=== PATIENT | female | born 1935 | race Caucasian/White ===

== ENCOUNTER 2020-10-25 15:42 | Emergency (ER) | payer MEDICARE ==
[~2020-10-25] VITALS: Ht 152.4 cm; Wt 47.6 kg
[2020-10-25 16:14] LABS: BASOPHILS ABSOLUTE AUTO 0.01 K/mm3 (0.00-0.23); BASOPHILS PERCENT AUTO 0 % (0-2); EOSINOPHILS ABSOLUTE AUTO 0.02 K/mm3 (0.00-0.68); EOSINOPHILS PERCENT AUTO 0 % (0-6); Hematocrit 40.2 % (33.0-51.0); Hemoglobin 13.1 g/dL (11.5-16.0); IMMATURE GRAN ABSOLUTE AUTO 0.03 K/mm3 (0.00-0.10); IMMATURE GRAN PERCENT AUTO 0 % (0-1); LYMPHOCYTES ABSOLUTE AUTO 0.36 K/mm3 (0.84-5.20); LYMPHOCYTES PERCENT AUTO 4 % (21-46); MONOCYTES ABSOLUTE AUTO 0.27 K/mm3 (0.16-1.47); MONOCYTES PERCENT AUTO 3 % (4-13); Mean Corpuscular HGB 28.9 pg (26.0-34.0); Mean Corpuscular HGB Conc 32.6 g/dL (31.5-36.5); Mean Corpuscular Volume 89 fL (80-100); Mean Platelet Volume 11.3 fL (9.1-12.4); NEUTROPHILS ABSOLUTE AUTO 8.53 K/mm3 (1.96-9.15); NEUTROPHILS PERCENT AUTO 93 % (41-73); Platelet Count 246 K/mm3 (150-400); RDW Coefficient Variation 15.2 % (11.7-14.2); RDW Standard Deviation 49.3 fL (35.1-46.3); Red Blood Cell Count 4.53 M/mm3 (3.80-5.20); White Blood Cell Count 9.22 K/mm3 (4.00-11.30)
[2020-10-25 16:33] LABS: Albumin, Blood 3.3 g/dL (3.4-5.0); Albumin/Globulin Ratio 0.7 (0.8-1.8); Bilirubin, Total 0.7 mg/dL (0.1-1.0); Bun/Creatinine Ratio 25.2 (12.0-20.0); Calcium, Blood 9.5 mg/dL (8.5-10.1); Creatinine, Blood 1.23 mg/dL (0.40-1.00); Globulin, Blood 4.7 g/dL (2.2-4.0); Potassium, Blood 4.3 mmol/L (3.5-5.5)
[2020-10-25] MEDS ORDERED: LOVASTATIN40 MG PO (18:15)
[2020-10-25] MEDS ORDERED: METOPROLOL TART25 MG PO (18:15)
[2020-10-25] MEDS ORDERED: LISINOPRIL-HCT1 EACH PO (18:16)
[2020-10-25 18:31] LABS: Source, Urine Voided
[2020-10-25 18:39] LABS: Bilirubin, Urine Neg (Neg); Blood, Urine 2+ (Neg); Glucose Qualitative, Urine Neg (Neg); Ketones, Urine 1+ (Neg); Leukocyte Esterase, Urine Neg (Neg); Nitrite, Urine Neg (Neg); Protein, Urine 4+ (Neg); Urobilinogen, Urine NORM (Normal)
[2020-10-25 18:49] LABS: Appearance, Urine Clear (Clear); Color, Urine Yellow (P-Yellow)
[2020-10-25 18:50] LABS: Bacteria Mod /hpf; Mucus Light (0-Heavy); Squamous Epithelial Cells Few /hpf (Few)
[2020-10-25] MEDS ORDERED: ONDA4ODT MM (20:21)
== END 2020-10-25 20:28 | disposition home or self-care (01) ==
LOC: ER 15:42
PROVIDERS: Physician Assistant
DX: R11.2 Nausea with vomiting, unspecified (principal); R19.7 Diarrhea, unspecified; Z79.899 Other long term (current) drug therapy
CPT/HCPCS: 36415; 71046; 80053; 81001; 83690; 85025; 96374; 99283-25; J2405; J7030

== ENCOUNTER 2020-10-28 09:14 | Inpatient (IN) | payer MEDICARE ==
[~2020-10-28] VITALS: Ht 152.4 cm; Wt 47.9 kg
[~2020-10-28 09:14] MED LIST: LISINOPRIL-HCT1 EACH PO; LOVASTATIN40 MG PO; METOPROLOL TART25 MG PO; ONDA4ODT MM
[2020-10-28 10:30] LABS: BASOPHILS ABSOLUTE AUTO 0.02 K/mm3 (0.00-0.23); BASOPHILS PERCENT AUTO 0 % (0-2); EOSINOPHILS ABSOLUTE AUTO 0.04 K/mm3 (0.00-0.68); EOSINOPHILS PERCENT AUTO 0 % (0-6); Hematocrit 33.7 % (33.0-51.0); Hemoglobin 11.1 g/dL (11.5-16.0); IMMATURE GRAN ABSOLUTE AUTO 0.06 K/mm3 (0.00-0.10); IMMATURE GRAN PERCENT AUTO 1 % (0-1); LYMPHOCYTES PERCENT AUTO 7 % (21-46); MONOCYTES ABSOLUTE AUTO 0.93 K/mm3 (0.16-1.47); MONOCYTES PERCENT AUTO 7 % (4-13); Mean Corpuscular HGB 29.4 pg (26.0-34.0); Mean Corpuscular HGB Conc 32.9 g/dL (31.5-36.5); Mean Corpuscular Volume 89 fL (80-100); NEUTROPHILS ABSOLUTE AUTO 10.63 K/mm3 (1.96-9.15); NEUTROPHILS PERCENT AUTO 84 % (41-73); Platelet Count 181 K/mm3 (150-400); RDW Coefficient Variation 15.3 % (11.7-14.2); RDW Standard Deviation 50.4 fL (35.1-46.3); Red Blood Cell Count 3.78 M/mm3 (3.80-5.20); White Blood Cell Count 12.58 K/mm3 (4.00-11.30)
[2020-10-28 10:58] LABS: Anion Gap 6 mmol/L (6-16); Blood Urea Nitrogen 40 mg/dL (8-24); Bun/Creatinine Ratio 21.3 (12.0-20.0); CO2, Blood 25 mmol/L (21-32); Calcium, Blood 8.1 mg/dL (8.5-10.1); Chloride, Blood 107 mmol/L (98-108); Creatinine, Blood 1.88 mg/dL (0.40-1.00); Glomerular Filtration Rate 25 (60-); Glucose, Blood 91 mg/dL (70-99); Potassium, Blood 3.4 mmol/L (3.5-5.5); Sodium, Blood 138 mmol/L (136-145); Troponin I <0.015 ng/mL (0.000-0.040)
[2020-10-28 12:05] LABS: SARS-Cov-2 (COVID-19) PCR, MMC NEGATIVE (NEGATIVE)
[2020-10-28] MEDS ORDERED: Amlodipine Bes2.5 MG PO (16:00)
[2020-10-28] MEDS ORDERED: OMEP20ER PO ×2 (16:02→16:03)
[2020-10-28] MEDS ORDERED: CARV25 PO (16:02)
--- NOTE | 2020-10-28 19:22 | NUR ---
SHIFT SUMMARY: PATIENT ADMIT FROM ED (INPATIENT) THIS SHIFT. PT A&O; [place]; BLIND IN L EYE; CALM AND COOPERATIVE WITH CARE. NO C/O PAIN / N/V SINCE ARRIVAL ON MEDICAL. PT EVAL & TREAT THIS SHIFT; IV ABX CONTINUING. REPORT GIVEN TO ONCOMING RN.
--- NOTE | 2020-10-28 22:18 | NUR ---
PHYSICIAN COMMUNICATION CONTACTED [facility] PHYSICIAN, BEATRIZ FU, TO NOTIFY HIM THAT THE PATIENT HAD A BLOOD PRESSURE OF 97/57 AND HEART RATE OF 68, 25 MG METOPROLOL ORDERED FOR PM MEDS. ASKED IF METOPROLOL COULD BE HELD. BEATRIZ FU SAID TO HOLD THE METOPROLOL AND ADMINISTER A 500 ML BOLUS OF NS AND RECHECK BLOOD PRESSURE WHEN DONE.
[2020-10-29 05:09] LABS: BASOPHILS ABSOLUTE AUTO 0.04 K/mm3 (0.00-0.23); BASOPHILS PERCENT AUTO 1 % (0-2); EOSINOPHILS ABSOLUTE AUTO 0.23 K/mm3 (0.00-0.68); EOSINOPHILS PERCENT AUTO 3 % (0-6); Hematocrit 30.3 % (33.0-51.0); Hemoglobin 9.9 g/dL (11.5-16.0); IMMATURE GRAN ABSOLUTE AUTO 0.02 K/mm3 (0.00-0.10); IMMATURE GRAN PERCENT AUTO 0 % (0-1); LYMPHOCYTES ABSOLUTE AUTO 1.93 K/mm3 (0.84-5.20); LYMPHOCYTES PERCENT AUTO 22 % (21-46); MONOCYTES ABSOLUTE AUTO 0.73 K/mm3 (0.16-1.47); MONOCYTES PERCENT AUTO 8 % (4-13); Mean Corpuscular HGB 29.7 pg (26.0-34.0); Mean Corpuscular HGB Conc 32.7 g/dL (31.5-36.5); Mean Corpuscular Volume 91 fL (80-100); Mean Platelet Volume 11.7 fL (9.1-12.4); NEUTROPHILS ABSOLUTE AUTO 5.73 K/mm3 (1.96-9.15); NEUTROPHILS PERCENT AUTO 66 % (41-73); Platelet Count 161 K/mm3 (150-400); RDW Coefficient Variation 15.7 % (11.7-14.2); RDW Standard Deviation 52.1 fL (35.1-46.3); Red Blood Cell Count 3.33 M/mm3 (3.80-5.20); White Blood Cell Count 8.68 K/mm3 (4.00-11.30)
--- NOTE | 2020-10-29 05:27 | NUR ---
SHIFT SUMMARY PATIENT ALERT AND ORIENTED. HAD NO COMPLAINTS OF PAIN. COUGHED UP A LARGE AMOUNT OF CLEAR SPUTUM, DID NOT COMPLAIN OF SHORTNESS OF BREATH. REMAINS ON ROOM AIR. RECEIVED A 500ML BOLUS FOR HYPOTENTION. IV PATENT AND FLUSHED. BED IN LOWEST POSITION WITH WHEELS LOCKED AND ALARM ON. CALL LIGHT WITHIN REACH. REPORT GIVEN TO ONCOMING RN.
[2020-10-29 05:46] LABS: Bun/Creatinine Ratio 19.6 (12.0-20.0); Calcium, Blood 8.1 mg/dL (8.5-10.1); Creatinine, Blood 1.58 mg/dL (0.40-1.00); Potassium, Blood 3.8 mmol/L (3.5-5.5)
--- NOTE | 2020-10-29 19:12 | NUR ---
SHIFT SUMMARY: NO ACUTE EVENTS TO REPORT THIS SHIFT. PT A&O; [place]; BLIND IN L EYE; CALM AND COOEPRATIVE WITH CARE. NO C/O PAIN / N/V THIS SHIFT. PT UP WITH SBA TO BATHROOM. IV ABX CONTINUING. POSSIBLE D/C TO HOME TOMORROW 10/30, PER HOSPITALIST (DR POTTER). REPORT GIVEN TO ONCOMING RN.
[2020-10-30 05:01] LABS: BASOPHILS ABSOLUTE AUTO 0.04 K/mm3 (0.00-0.23); BASOPHILS PERCENT AUTO 1 % (0-2); EOSINOPHILS ABSOLUTE AUTO 0.23 K/mm3 (0.00-0.68); EOSINOPHILS PERCENT AUTO 4 % (0-6); Hematocrit 32.7 % (33.0-51.0); Hemoglobin 10.5 g/dL (11.5-16.0); IMMATURE GRAN ABSOLUTE AUTO 0.03 K/mm3 (0.00-0.10); IMMATURE GRAN PERCENT AUTO 1 % (0-1); LYMPHOCYTES ABSOLUTE AUTO 1.48 K/mm3 (0.84-5.20); LYMPHOCYTES PERCENT AUTO 26 % (21-46); MONOCYTES ABSOLUTE AUTO 0.61 K/mm3 (0.16-1.47); MONOCYTES PERCENT AUTO 11 % (4-13); Mean Corpuscular HGB 29.2 pg (26.0-34.0); Mean Corpuscular HGB Conc 32.1 g/dL (31.5-36.5); Mean Corpuscular Volume 91 fL (80-100); Mean Platelet Volume 11.3 fL (9.1-12.4); NEUTROPHILS ABSOLUTE AUTO 3.33 K/mm3 (1.96-9.15); NEUTROPHILS PERCENT AUTO 58 % (41-73); Platelet Count 168 K/mm3 (150-400); RDW Coefficient Variation 15.7 % (11.7-14.2); RDW Standard Deviation 52.3 fL (35.1-46.3); Red Blood Cell Count 3.59 M/mm3 (3.80-5.20); White Blood Cell Count 5.72 K/mm3 (4.00-11.30)
[2020-10-30 05:27] LABS: Bun/Creatinine Ratio 15.4 (12.0-20.0); Calcium, Blood 8.1 mg/dL (8.5-10.1); Creatinine, Blood 1.17 mg/dL (0.40-1.00); Potassium, Blood 3.6 mmol/L (3.5-5.5)
--- NOTE | 2020-10-30 06:26 | NUR ---
SHIFT SUMMARY PATIENT ALERT AND ORIENTED. HAD NO COMPLAINTS OF PAIN. OCCASIONAL SHORTNESS OF BREATH. SLEPT WELL OVERNIGHT. NO ACUTE ISSUES NOTED. IV PATENT AND INFUSING. BED IN LOWEST POSITION WITH WHEELS LOCKED AND ALARM ON. CALL LIGHT WITHIN REACH. REPORT GIVEN TO ONCOMING RN.
[2020-10-30] MEDS ORDERED: AMOCLA875 PO (13:30)
[2020-10-30] MEDS ORDERED: VISBIOME 112.51 EACH PO (13:33)
--- NOTE | 2020-10-30 14:19 | NUR ---
PT DISCHARGED THE PT VERBALIZED UNDERSTANDING OF THE DC INSTRUCTIONS, THE PTS PRESCRIPTIONS WERE FAXED TO [facility]. A FOLLOW UP APPOINTMENT WAS MADE PRIOR TO DISCHARGE, THE PT WAS TRANSFERED VIA [facility] ACCOMPANIED BY THE INTERIOR DESIGN INSTRUCTOR TO MEET HER RIDE HOME
== END 2020-10-30 14:10 | disposition home or self-care (01) | DRG 194 ==
LOC: ER 09:14 → MEDS 12:26
PROVIDERS: Family Medicine; Student in an Organized Health Care Education/Training Program; ADMIT Hospitalist
DX: J18.9 Pneumonia, unspecified organism (principal); N17.9 Acute kidney failure, unspecified; E87.6 Hypokalemia; Z20.822 Contact with and (suspected) exposure to COVID-19; E86.0 Dehydration; E78.5 Hyperlipidemia, unspecified; I12.9 Hypertensive chronic kidney disease with stage 1 through stage 4 chronic kidney disease, or unspecified chronic kidney disease; N18.30 Chronic kidney disease, stage 3 unspecified; K21.9 Gastro-esophageal reflux disease without esophagitis; Z79.899 Other long term (current) drug therapy; Z87.891 Personal history of nicotine dependence
CPT/HCPCS: 36415; 71045; 71046; 80048; 80053; 81001; 83605; 83690; 83735; 84484; 85025; 87040; 93005; 93010; 96365; 96368; 96374; 96375; 97110; 97161; 99283-25; 99285-25; A9270; J0456; J0696; J1650; J2405; J3475; J3480; J7030; J7040; J7050; U0004

== ENCOUNTER 2023-01-19 23:04 | Inpatient (IN) | payer MEDICARE ==
[~2023-01-19] VITALS: Ht 152.4 cm; Wt 42.6 kg
[~2023-01-19 23:04] MED LIST changes: +AMOCLA875 PO; +AZIT250 PO; +Amlodipine Bes2.5 MG PO; +CARV25 PO; +OMEP20ER PO; +VISBIOME 112.51 EACH PO
[2023-01-19 23:24] LABS: BASOPHILS ABSOLUTE AUTO 0.03 K/mm3 (0.00-0.23); BASOPHILS PERCENT AUTO 1 % (0-2); EOSINOPHILS ABSOLUTE AUTO 0.11 K/mm3 (0.00-0.68); EOSINOPHILS PERCENT AUTO 2 % (0-6); Hemoglobin 12.6 g/dL (11.5-16.0); IMMATURE GRAN ABSOLUTE AUTO 0.03 K/mm3 (0.00-0.10); IMMATURE GRAN PERCENT AUTO 1 % (0-1); LYMPHOCYTES ABSOLUTE AUTO 1.83 K/mm3 (0.84-5.20); LYMPHOCYTES PERCENT AUTO 30 % (21-46); MONOCYTES ABSOLUTE AUTO 0.63 K/mm3 (0.16-1.47); MONOCYTES PERCENT AUTO 10 % (4-13); Mean Corpuscular HGB 29.5 pg (26.0-34.0); Mean Corpuscular HGB Conc 33.2 g/dL (31.5-36.5); Mean Corpuscular Volume 89 fL (80-100); NEUTROPHILS ABSOLUTE AUTO 3.55 K/mm3 (1.96-9.15); NEUTROPHILS PERCENT AUTO 57 % (41-73); Platelet Count 203 K/mm3 (150-400); RDW Coefficient Variation 15.6 % (11.7-14.2); RDW Standard Deviation 51.3 fL (35.1-46.3); Red Blood Cell Count 4.27 M/mm3 (3.80-5.20); White Blood Cell Count 6.18 K/mm3 (4.00-11.30)
[2023-01-19 23:43] LABS: Albumin, Blood 3.1 g/dL (3.4-5.0); Albumin/Globulin Ratio 0.7 (0.8-1.8); Bilirubin, Total 0.4 mg/dL (0.1-1.0); Bun/Creatinine Ratio 19.5 (12.0-20.0); Calcium, Blood 9.7 mg/dL (8.5-10.1); Creatinine, Blood 1.69 mg/dL (0.40-1.00); Globulin, Blood 4.3 g/dL (2.2-4.0); Total Protein, Blood 7.4 g/dL (6.4-8.2)
[2023-01-19 23:47] LABS: International Normalized Ratio 1.03; Prothrombin Time Results 10.8 Sec (9.7-11.5)
[2023-01-20 05:09] VITALS: BP 158/87
[2023-01-20 06:15] LABS: Hematocrit 38.2 % (33.0-51.0); Hemoglobin 12.4 g/dL (11.5-16.0)
[2023-01-20 07:58] VITALS: BP 148/71
[2023-01-20 09:37] LABS: Influenza A, PCR NEGATIVE (NEGATIVE); Influenza B, PCR NEGATIVE (NEGATIVE); Resp Syncytial Virus, PCR NEGATIVE (NEGATIVE); SARS-Cov-2 (COVID-19) PCR, MMC NEGATIVE (NEGATIVE)
[2023-01-20 11:43] LABS: Hematocrit 34.9 % (33.0-51.0)
[2023-01-20 15:05] VITALS: BP 105/54
[2023-01-20 17:28] LABS: Hematocrit 33.5 % (33.0-51.0); Hemoglobin 10.8 g/dL (11.5-16.0)
--- NOTE | 2023-01-20 19:01 | NUR ---
SHIFT SUMMARY: NO ACUTE EVENTS. DENIED PAIN. NO EVENTS ON TELEMETRY, SR 80'S WITH PVC'S. NO EPISODES OF HEMATEMESIS OF HEMOPTYSIS THIS SHIFT. SPITS A LOT OF PHLEGM BUT NO REAL COUGH, CLEAR TO DARK BROWN TINGED. ON O2 @ 2 L/MIN NC, SLIGHT DYSPNEA WITH EXERTION. TOLERATING FULL LIQ DIET. REFUSING SCD'S. COVID TEST NEGATIVE. DR. NYE AT BEDSIDE AT TIME OF THIS NOTE FOR GI CONSULT. GETS UP TO BR INDEPENDENTLY.
[2023-01-20 19:17] VITALS: BP 125/66
[2023-01-20 23:52] LABS: Hematocrit 32.2 % (33.0-51.0); Hemoglobin 10.3 g/dL (11.5-16.0)
[2023-01-21 03:17] VITALS: BP 105/65
--- NOTE | 2023-01-21 04:24 | NUR ---
SHIFT SUMMARY: PT IS ADMITTED FOR HEMATEMESIS. IS A DNR. ALERT AND ABLE TO MAKE NEEDS KNOWN. HER SPEECH A LITTLE HORSE AND QUITE. ADL S HAVE BEEN 1P WHILE IN BED. AND HAS NOT GOTTEN OUT OF BED THIS SHIFT. IV TO LEFT FOREARM HAS BEEN RUNNING PROTONIX AT 10ML/H. BENI REPORTED SINIS @69. LAB HAS SHOWN THAT HGB HAS DROPPED TO 10.3.
[2023-01-21 05:55] LABS: BASOPHILS ABSOLUTE AUTO 0.05 K/mm3 (0.00-0.23); BASOPHILS PERCENT AUTO 0 % (0-2); EOSINOPHILS ABSOLUTE AUTO 0.16 K/mm3 (0.00-0.68); EOSINOPHILS PERCENT AUTO 1 % (0-6); Hematocrit 33.4 % (33.0-51.0); Hemoglobin 10.5 g/dL (11.5-16.0); IMMATURE GRAN ABSOLUTE AUTO 0.09 K/mm3 (0.00-0.10); IMMATURE GRAN PERCENT AUTO 1 % (0-1); LYMPHOCYTES ABSOLUTE AUTO 1.52 K/mm3 (0.84-5.20); LYMPHOCYTES PERCENT AUTO 11 % (21-46); MONOCYTES ABSOLUTE AUTO 1.04 K/mm3 (0.16-1.47); MONOCYTES PERCENT AUTO 8 % (4-13); Mean Corpuscular HGB 28.9 pg (26.0-34.0); Mean Corpuscular HGB Conc 31.4 g/dL (31.5-36.5); Mean Corpuscular Volume 92 fL (80-100); Mean Platelet Volume 11.7 fL (9.1-12.4); NEUTROPHILS ABSOLUTE AUTO 10.78 K/mm3 (1.96-9.15); NEUTROPHILS PERCENT AUTO 79 % (41-73); Platelet Count 159 K/mm3 (150-400); RDW Coefficient Variation 15.9 % (11.7-14.2); RDW Standard Deviation 53.7 fL (35.1-46.3); Red Blood Cell Count 3.63 M/mm3 (3.80-5.20); White Blood Cell Count 13.64 K/mm3 (4.00-11.30)
[2023-01-21 06:22] LABS: Albumin, Blood 2.6 g/dL (3.4-5.0); Albumin/Globulin Ratio 0.7 (0.8-1.8); Bilirubin, Total 0.6 mg/dL (0.1-1.0); Bun/Creatinine Ratio 16.2 (12.0-20.0); Calcium, Blood 8.7 mg/dL (8.5-10.1); Creatinine, Blood 1.85 mg/dL (0.40-1.00); Globulin, Blood 3.7 g/dL (2.2-4.0); Potassium, Blood 3.8 mmol/L (3.5-5.5); Total Protein, Blood 6.3 g/dL (6.4-8.2)
[2023-01-21 07:51] VITALS: BP 128/63
--- NOTE | 2023-01-21 17:36 | NUR ---
SHIFT SUMMARY: NO ACUTE EVENTS. NO EVENTS ON TELEMETRY, SR 60-70'S. A&O X 4, PLEASANT, HAS HOARSE VOICE. COUGHING OCCASIONALLY, MANAGING SPUTUM WITH SUCTION. DECLINED OFFERED COUGH DROPS. DENIED PAIN. IS REFUSING SCD'S. ON O2 @ 1 L/MIN NC, SATS 90-94%, GARCIA. TOLERATING FULL LIQUID DIET. SINCE SHE IS NOT HAVING EGD AT THIS TIME, IS HOPING TO HOME TOMORROW.
[2023-01-21 19:22] VITALS: BP 122/83
--- NOTE | 2023-01-22 04:22 | NUR ---
NOTIFIED BY TELE NOTIFIED BY [employer] THAT PT IS IN AFIB AT 102. PT IS RESTING IN BED. NO SIGNS, SYMPTOMS, OR CP. DR ABRAMS NOTIFIED. WILL CONTINUE TO MONITOR.
--- NOTE | 2023-01-22 04:25 | NUR ---
SHIFT SUMMARY PT A&O X4, CALM AND COOPERATIVE WITH CARE. IV REPLACED DURING THIS SHIFT DUE TO LEAKING. TELEMETRY: SR 60S CONVERTED TO AFIB. NOTIFIED BY TELE AT 0415. NOTIFIED DR ABRAMS. PT DENIES ANY CP, PRESSURE, OR SOB. IP ASSIST TO BATHROOM, VOIDING WITHOUT DIFFICULTY. TOLERATING FULL LIQUID DIET. PT HAS PRODUCTIVE COUGH, SUCTION AT BEDISIDE, USES TISSUES TO SPIT. NO BLOOD IN SPUTUM. PT CURRENTLY ON 1.5 L O2, SOME SOB WITH EXERCION. RASPY VOICE THAT PT STATES IS BASELINE. WILL CONTINUE TO MONITOR. BED KEPT IN LOWEST POSITION WITH CALL LIGHT WITHIN REACH.
[2023-01-22 04:26] VITALS: BP 105/48
[2023-01-22 04:48] LABS: BASOPHILS ABSOLUTE AUTO 0.06 K/mm3 (0.00-0.23); BASOPHILS PERCENT AUTO 1 % (0-2); EOSINOPHILS ABSOLUTE AUTO 0.07 K/mm3 (0.00-0.68); EOSINOPHILS PERCENT AUTO 1 % (0-6); Hematocrit 33.5 % (33.0-51.0); Hemoglobin 10.8 g/dL (11.5-16.0); IMMATURE GRAN ABSOLUTE AUTO 0.05 K/mm3 (0.00-0.10); IMMATURE GRAN PERCENT AUTO 1 % (0-1); LYMPHOCYTES ABSOLUTE AUTO 1.12 K/mm3 (0.84-5.20); LYMPHOCYTES PERCENT AUTO 10 % (21-46); MONOCYTES ABSOLUTE AUTO 0.82 K/mm3 (0.16-1.47); MONOCYTES PERCENT AUTO 8 % (4-13); Mean Corpuscular HGB 29.3 pg (26.0-34.0); Mean Corpuscular HGB Conc 32.2 g/dL (31.5-36.5); Mean Corpuscular Volume 91 fL (80-100); Mean Platelet Volume 11.3 fL (9.1-12.4); NEUTROPHILS ABSOLUTE AUTO 8.81 K/mm3 (1.96-9.15); NEUTROPHILS PERCENT AUTO 81 % (41-73); Platelet Count 156 K/mm3 (150-400); RDW Coefficient Variation 15.6 % (11.7-14.2); RDW Standard Deviation 51.8 fL (35.1-46.3); Red Blood Cell Count 3.68 M/mm3 (3.80-5.20); White Blood Cell Count 10.93 K/mm3 (4.00-11.30)
[2023-01-22 05:20] LABS: Albumin, Blood 2.5 g/dL (3.4-5.0); Anion Gap 5 mmol/L (6-16); Blood Urea Nitrogen 26 mg/dL (8-24); Bun/Creatinine Ratio 16.6 (12.0-20.0); CO2, Blood 27 mmol/L (21-32); Calcium, Blood 8.4 mg/dL (8.5-10.1); Chloride, Blood 108 mmol/L (98-108); Creatinine, Blood 1.57 mg/dL (0.40-1.00); Glomerular Filtration Rate 32 (60-); Glucose, Blood 101 mg/dL (70-99); Phosphorus, Blood 2.4 mg/dL (2.5-4.9); Potassium, Blood 3.6 mmol/L (3.5-5.5); Sodium, Blood 140 mmol/L (136-145)
[2023-01-22 06:25] LABS: Magnesium, Blood 1.8 mg/dL (1.6-2.4)
[2023-01-22 07:07] VITALS: BP 104/65
[2023-01-22 16:08] VITALS: BP 107/64
--- NOTE | 2023-01-22 17:08 | NUR ---
SHIFT SUMMARY PT IS ALERT AND ORIENTED X4. PIVOT TO BEDSIDE COMMODE, LIMITED USE OF LLE DUE TO PAIN. PT REPORTS PAIN IN THE LLE AND KNEE THAT STARTED 01/21. SWELLING NOTED IN THE LEFT KNEE. DR. ALVARES NOTIFIED. AT BEDSIDE THIS MORNING. PLS SEE ORDERS. PT TEARFUL THIS AFTERNOON. WE DISCUSSED HER CURRENT SITUATION, LIVES WITH SON WHO ALSO HAS EXTENSIVE MEDICAL NEEDS. DAUGHTER, GRAHAM, LIVES IN ANOTHER STATE. GRAHAM ASKED THAT AUDIOMETRIC TECHNICIAN CALL HER WHEN AVAILABLE. AUDIOMETRIC TECHNICIAN, KALEIGH, UPDATED. PT CONTINUES TO HAVE COPIOUS SECRETIONS THAT ARE DIFFICULT TO CLEAR. PT DECLINES PRN COUGH MEDICAITON. BED IS IN THE LOWEST POSITION WITH CALL LIGHT IN REACH
[2023-01-22 19:24] VITALS: BP 80/41
[2023-01-22 19:37] VITALS: BP 98/56
--- NOTE | 2023-01-22 20:04 | NUR ---
LATE ENTRY NOTIFIED BY SAWDUST DRIER OF LOW BP READING AT 19:30. RECHECKED BP 98/56. MAP 69. ALL OTHER VSS. PT ALERT AND AWAKE LYING IN BED. WILL CONT TO MONITOR
--- NOTE | 2023-01-23 03:06 | NUR ---
SHIFT [facility] PT A&O X4, PLEASANT AND COOPERATIVE WITH CARE. PT UP TO CHAIR AT START OF SHIFT. 1P PIVOT TRANSFER FROM CHAIR TO BED. PT USES BSC W/ 1P ASSIST. TELEMETRY: SR @ 63. CURRENTLY ON 1.5L O2 VIA NC. PT DENIES ANY CP, PRESSURE, OR SOB. PT CURRENTLY HAS COPIOUS AMOUNTS OF SECRETIONS WHICH ARE DIFFICULT FOR HER TO CLEAR. SUCTION SET UP AT BEDSIDE AND PT EDUCATED ON USE. DECLINES PRN COUGH MEDS. 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 TOLERATING FULL LIQUID DIET. PT INSTRUCTED TO CONTINUE USING FLUTTER VALVE AND INCENTIVE SPIROMETER. LLE KNEE PAIN WITH SWELLING. DR AWARE. TREATED PER EMAR. BED KEPT IN LOWEST POSITION WITH CALL LIGHT WITHIN REACH. WILL CONTINUE TO MONITOR UNTIL SHIFT END.
[2023-01-23 04:33] VITALS: BP 115/58
[2023-01-23 05:49] LABS: Hematocrit 30.3 % (33.0-51.0); Hemoglobin 9.6 g/dL (11.5-16.0)
[2023-01-23 06:37] LABS: Albumin, Blood 2.3 g/dL (3.4-5.0); Anion Gap 5 mmol/L (6-16); Blood Urea Nitrogen 30 mg/dL (8-24); Bun/Creatinine Ratio 18.3 (12.0-20.0); CO2, Blood 27 mmol/L (21-32); Calcium, Blood 8.2 mg/dL (8.5-10.1); Chloride, Blood 109 mmol/L (98-108); Creatinine, Blood 1.64 mg/dL (0.40-1.00); Glomerular Filtration Rate 30 (60-); Glucose, Blood 85 mg/dL (70-99); Phosphorus, Blood 2.5 mg/dL (2.5-4.9); Potassium, Blood 3.4 mmol/L (3.5-5.5); Sodium, Blood 141 mmol/L (136-145)
[2023-01-23 07:18] VITALS: BP 150/67
[2023-01-23 15:00] VITALS: BP 122/66
--- NOTE | 2023-01-23 16:43 | NUR ---
SHIFT SUMMARY NO ACUTE CHANGES THIS SHIFT. LEFT KNEE CONTINUES TO BE PAINFUL. TREATED PER EMAR. STAND PIVOT TO BSC. COPIOUS AMOUNT OF SECRETIONS AND HARSH PRODUCTIVE COUGH THAT PT STATES IS HER BASELINE. SUCTION IS SET UP AT BEDSIDE. FLUTTER VALVE ENCOURAGED. PT VERBALIZED UNDERSTANDING NEED FOR THE THERAPY. 1.5L NC. PILLS CRUSHED IN APPLE SAUCE. PT SEEMS TO BE WITHDRAWN AND UNINTERESTED IN CONVERSATION. UPDATED DAUGHTER GRAHAM ON PT PLAN OF CARE. SHE AGAIN EXPRESSED WORRY FOR HER MOTHERS DISCHARGE DISPOSITION. SHE STATES PT LIVES WITH SON WHO ALSO HAS MANY HEALTH NEEDS AND IS NOT IN A GOOD POSTION TO HELP CARE FOR MOTHER. COMPLIANCE OFFICER IS AWARE. PT IS ABLE TO REPOSTION HERSELF IN BED. FLUIDS DECREASED. BED IS IN THE LOWEST POSTION WITH CALL LIGHT IN REACH, PT IS ABLE TO MAKE NEEDS KNOWN.
[2023-01-23 20:22] VITALS: BP 135/72
[2023-01-24 02:36] VITALS: BP 115/64
--- NOTE | 2023-01-24 04:53 | NUR ---
SHIFT SUMMARY PT IS A&O X4, COOPERATIVE WITH CARE. PT COMPLAINS OF LEFT KNEE PAIN WHICH APPEARS SWOLLEN STILL. TREATED PER EMAR AND ICE THERAPY. PT IS STAND/PIVOT TO BS. CONTINENT. TELEMETRY: SR @ 66. DENIES ANY CP OR PRESSURE. 1.5 L O2 VIA NC. PT HAS COPIOUS AMOUNTS OF SECRETIONS. SUCTION SET UP AT BEDSIDE AND PT IS ABLE TO CLEAR. PT IS TOLERATING FULL LIQUID DIET BUT HAS LITTLE PO INTAKE. ENCOURGED PT TO DRINK FLUIDS. NS RUNNING @ 30 ML/HR. ENCOURAGED PT TO USE INCENTIVE SPIROMETER AND FLUTTER VALVE. NO ACUTE EVENTS OVERNIGHT. BED KEPT IN THE LOWEST POSITION WITH CALL LIGHT IN REACH. WILL CONTINUE TO MONITOR.
[2023-01-24 05:52] LABS: BASOPHILS ABSOLUTE AUTO 0.01 K/mm3 (0.00-0.23); BASOPHILS PERCENT AUTO 0 % (0-2); EOSINOPHILS PERCENT AUTO 0 % (0-6); Hematocrit 33.3 % (33.0-51.0); Hemoglobin 10.6 g/dL (11.5-16.0); IMMATURE GRAN ABSOLUTE AUTO 0.04 K/mm3 (0.00-0.10); IMMATURE GRAN PERCENT AUTO 1 % (0-1); LYMPHOCYTES ABSOLUTE AUTO 0.69 K/mm3 (0.84-5.20); LYMPHOCYTES PERCENT AUTO 8 % (21-46); MONOCYTES ABSOLUTE AUTO 0.31 K/mm3 (0.16-1.47); MONOCYTES PERCENT AUTO 4 % (4-13); Mean Corpuscular HGB 29.1 pg (26.0-34.0); Mean Corpuscular HGB Conc 31.8 g/dL (31.5-36.5); Mean Corpuscular Volume 92 fL (80-100); Mean Platelet Volume 11.9 fL (9.1-12.4); NEUTROPHILS ABSOLUTE AUTO 7.75 K/mm3 (1.96-9.15); NEUTROPHILS PERCENT AUTO 88 % (41-73); Platelet Count 166 K/mm3 (150-400); RDW Coefficient Variation 15.7 % (11.7-14.2); RDW Standard Deviation 52.8 fL (35.1-46.3); Red Blood Cell Count 3.64 M/mm3 (3.80-5.20)
[2023-01-24 06:27] LABS: Albumin, Blood 2.3 g/dL (3.4-5.0); Anion Gap 6 mmol/L (6-16); Blood Urea Nitrogen 26 mg/dL (8-24); Bun/Creatinine Ratio 18.7 (12.0-20.0); CO2, Blood 27 mmol/L (21-32); Calcium, Blood 8.2 mg/dL (8.5-10.1); Chloride, Blood 110 mmol/L (98-108); Creatinine, Blood 1.39 mg/dL (0.40-1.00); Glomerular Filtration Rate 37 (60-); Glucose, Blood 133 mg/dL (70-99); Phosphorus, Blood 2.6 mg/dL (2.5-4.9); Potassium, Blood 4.1 mmol/L (3.5-5.5); Sodium, Blood 143 mmol/L (136-145)
[2023-01-24 07:51] VITALS: BP 141/69
--- NOTE | 2023-01-24 08:32 | NUR ---
PATIENT WITH RUN OF CECE FOR 12 SECONDS PER LEONEL TELEMETRY. HR WAS 35 AND 2.84 SECOND PAUSE. PATIENT SLEEPING WHEN I CHECKED ON HIM, WAKES EASILY AND DENIES ANY SYMPTOMS AT THIS TIME. CALL PLACED TO DR NDIAYE AT 0830. OM.
[2023-01-24 14:33] LABS: SARS-Cov-2 (COVID-19) PCR, MMC NEGATIVE (NEGATIVE)
[2023-01-24 16:04] VITALS: BP 163/85
[2023-01-24 16:05] VITALS: BP 163/85
[2023-01-24] MEDS ORDERED: ALBU2.5V5 INH (16:28)
[2023-01-24] MEDS ORDERED: ACET325 PO (16:28)
[2023-01-24] MEDS ORDERED: ALLO100 PO (16:29)
[2023-01-24] MEDS ORDERED: OMEP20ER PO (16:30)
[2023-01-24] MEDS ORDERED: [UNRECOGNIZED DRUG - OTHER] MT (16:30)
[2023-01-24] MEDS ORDERED: PRED20 PO (16:31)
[2023-01-24] MEDS ORDERED: AUGMENTIN250 MG/5 M PO (16:32)
[2023-01-24] MEDS ORDERED: VISBIOME 112.51 EACH PO (16:32)
--- NOTE | 2023-01-24 18:23 | NUR ---
DISCHARGE SUMMARY PATIENT WITH NO ACUTE EVENTS DURING SHIFT. SHE IS UP TO BATHROOM WITH WALKER AND GAIT BELT. PATIENT TRANSFERRED TO [facility] VIA [facility] TRANSPORT AT 1710, RN TO RN REPORT GIVEN BY STOCK PARTS INSPECTOR TO CHRIS TREJO AT [facility] AND 1710.
== END 2023-01-24 17:12 | disposition hospice, inpatient (51) | DRG 377 ==
LOC: ER 23:04 → MEDS 23:05
PROVIDERS: Internal Medicine; Student in an Organized Health Care Education/Training Program; ADMIT Internal Medicine
DX: K92.0 Hematemesis (principal); J69.0 Pneumonitis due to inhalation of food and vomit; J96.01 Acute respiratory failure with hypoxia; J98.11 Atelectasis; N17.9 Acute kidney failure, unspecified; J44.0 Chronic obstructive pulmonary disease with (acute) lower respiratory infection; Z66 Do not resuscitate; I12.9 Hypertensive chronic kidney disease with stage 1 through stage 4 chronic kidney disease, or unspecified chronic kidney disease; E78.5 Hyperlipidemia, unspecified; K21.9 Gastro-esophageal reflux disease without esophagitis; E79.0 Hyperuricemia without signs of inflammatory arthritis and tophaceous disease; N18.9 Chronic kidney disease, unspecified; F17.210 Nicotine dependence, cigarettes, uncomplicated; Z20.822 Contact with and (suspected) exposure to COVID-19; M25.462 Effusion, left knee; M17.12 Unilateral primary osteoarthritis, left knee; Z86.16 Personal history of COVID-19; Z98.890 Other specified postprocedural states; Z79.811 Long term (current) use of aromatase inhibitors; Z79.899 Other long term (current) drug therapy
CPT/HCPCS: 0241U; 36415; 71046; 71260; 73562-LT; 74177; 80053; 80069; 83735; 83880; 84145; 84550; 85014; 85018; 85025; 85379; 85610; 85730; 86850; 86900; 86901; 93005; 93010; 93971; 94640; 94664; 94760; 96361; 96365-59; 96375; 96376; 97110; 97116; 97161; 97166; 97535; 99285-25; A9270; C9113; G0378; J0696; J7030; J7512; Q9967; U0002

== ENCOUNTER 2023-02-09 13:15 | Inpatient (IN) | payer MEDICARE ==
[2023-02-09] VITALS (30 sets, daily range): BP systolic 118–174; BP diastolic 55–126
[~2023-02-09] VITALS: Ht 152.4 cm; Wt 44.6 kg
[~2023-02-09 13:15] MED LIST changes: +ACET325 PO; +ALBU2.5V5 INH; +ALLO100 PO; +AUGMENTIN250 MG/5 M PO; +PRED20 PO; +[UNRECOGNIZED DRUG - OTHER] MT
[2023-02-09 15:07] LABS: Albumin, Blood 2.3 g/dL (3.4-5.0); Albumin/Globulin Ratio 0.6 (0.8-1.8); Bilirubin, Total 0.9 mg/dL (0.1-1.0); Bun/Creatinine Ratio 17.5 (12.0-20.0); Calcium, Blood 8.3 mg/dL (8.5-10.1); Creatinine, Blood 1.14 mg/dL (0.40-1.00); Globulin, Blood 4.1 g/dL (2.2-4.0); Potassium, Blood 4.3 mmol/L (3.5-5.5); Total Protein, Blood 6.4 g/dL (6.4-8.2)
[2023-02-09 15:10] LABS: Influenza A, PCR NEGATIVE (NEGATIVE); Influenza B, PCR NEGATIVE (NEGATIVE); Resp Syncytial Virus, PCR NEGATIVE (NEGATIVE)
[2023-02-09 15:23] LABS: PCO2 Arterial 46.7 mmHg (35-45); PO2 Arterial 152 mmHg (80-100); pH Blood Arterial 7.38 (7.35-7.45)
[2023-02-09 15:23] LABS: BASOPHILS ABSOLUTE AUTO 0.04 K/mm3 (0.00-0.23); BASOPHILS PERCENT AUTO 0 % (0-2); EOSINOPHILS ABSOLUTE AUTO 0.02 K/mm3 (0.00-0.68); EOSINOPHILS PERCENT AUTO 0 % (0-6); Hematocrit 32.9 % (33.0-51.0); Hemoglobin 10.8 g/dL (11.5-16.0); IMMATURE GRAN ABSOLUTE AUTO 0.05 K/mm3 (0.00-0.10); IMMATURE GRAN PERCENT AUTO 1 % (0-1); LYMPHOCYTES ABSOLUTE AUTO 0.37 K/mm3 (0.84-5.20); LYMPHOCYTES PERCENT AUTO 4 % (21-46); MONOCYTES ABSOLUTE AUTO 0.53 K/mm3 (0.16-1.47); MONOCYTES PERCENT AUTO 6 % (4-13); Mean Corpuscular HGB 29.8 pg (26.0-34.0); Mean Corpuscular HGB Conc 32.8 g/dL (31.5-36.5); Mean Corpuscular Volume 91 fL (80-100); NEUTROPHILS ABSOLUTE AUTO 8.07 K/mm3 (1.96-9.15); NEUTROPHILS PERCENT AUTO 89 % (41-73); NRBC ABSOLUTE 0.02 K/mm3 (0.00-0.02); NRBC Auto 0.2 /100 WBC (0.0-0.2); RDW Coefficient Variation 16.9 % (11.7-14.2); RDW Standard Deviation 55.2 fL (35.1-46.3); Red Blood Cell Count 3.63 M/mm3 (3.80-5.20); White Blood Cell Count 9.08 K/mm3 (4.00-11.30)
[2023-02-09 15:30] LABS: SARS-Cov-2 (COVID-19) PCR, MMC POSITIVE (NEGATIVE)
[2023-02-09 16:21] LABS: Base Excess Venous 3.1 mmol/L; Bicarbonate Venous 27.1 mmol/L (24.0-30.0); PCO2 Venous 39.5 mmHg (38-42); pH Blood Venous 7.45 (7.34-7.37)
--- NOTE | 2023-02-09 17:53 | NUR ---
PT ARRIVED FROM ER AT 1700 FOR NEW SEIZURE. PT IS RESIDENT AT [facility]. PT ARRIVED MINIMALLY RESPONSIVE. PT DOES NOT OPEN EYES AND IS NON-VERBAL. PT RESPONDS TO STIMULI BY MOVING ALL EXTREMITIES; PT PULLED GOWN UP OVER HEAD IF ATTEMPTING TO COVER HERSELF UP. PT ROLLED TO RIGHT SIDE UNASSISTED. PT HAS STRONG COUGH AND GAG. COUGH DRY/HACKING NON-PRODUCTIVE. PT 90% ON RA, PT PLACED ON 2L VIA N/C. PT HAS SOME REDNESS TO BOTTOM AND COCCYX; SOME OF THESE AREA'S DO NOT DEENA. PICTURES TAKEN, MEPILEX PLACED. DR BUTLER AT BEDSIDE SHORTLY AFTER ADMISSION. PT HAS SOME HTN, PERMISSIVE HTN OKAY PER DR SANTO. SEIZURE PADS PLACED. PT'S SON OLIVER CALLED HE IS LISTED EMERGENCY CONTACT #1 ON [facility] ADMISSION RECORD. OLIVER NOTIFIED OF ADMIT AND GIVEN UPDATE. WHEN ASKING ABOUT PAST MEDICAL HISTORY PT'S SON BECAME DEFENSIVE AND ANGRY. OLIVER APPEARED ANGRY THAT A PHYSICIAN HAD NOT CONTACTED HIM AND WANTED TO KNOW WHY. WHEN I OFFERED TO HAVE HIM SPEAK W DR SANTO WHOM WAS IN UNIT AND WILLING TO SPEAK WITH SON; OLIVER REFUSED/DECLINED, THEN HUNG UP THE PHONE.
--- NOTE | 2023-02-09 18:39 | NUR ---
CT REVIEWED BY DR SANTO; NEW ORDERS PLACED TO TREAT HTN. MAG AND ABX ORDERED.
--- NOTE | 2023-02-09 22:31 | NUR ---
PATIENT OPENS EYES SPONTANEOUSLY, CONTINUES TO BE DEVIATED TO THE RIGHT. LEFT PUPIL MISSHAPEN AND NOT REACTIVE TO LIGHT RIGHT PUPIL ROUND AND REACTIVE. REACHING UP WITH BOTH HANDS TO ORAL CARE, AND SUCTIONING. PATIENT HAVING RHYTHMIC MOVEMENT TO HER JAW AND CHEEKS, INCREASING WITH STIMULI. NO TREMOR OR MOVEMENT SEEN TO BODY, BUT DID REACH UP WITH LEFT ARM AND PUSH AWAY SUCTION. PATIENT ALSO HAVING HARSH BARKING LIKE COUGH DURING THIS TIME, WITH LARGE AMT OF CLEAR AND SMALL AMT OF BROWN ORAL SECRETIONS IN BED WHEN REPOSITIONED, AGGRESSIVE ORAL SUCTIONING DONE WITH NO FURTHER SECRETIONS. RHYTHMIC MOVEMENT STOPPING WITH ATIVAN IV GIVEN. BIOX DOWN TO 85% AFTER ATIVAN OXYGEN INCREASED TO 4L/NC AND HOB ELEVATED. NEW ORDERS RECEIVED FROM DOCTOR GAL, FOR PASSABLE MENINGITIS. AT APROX 1999 SPOKE WITH PATIENTS SISTER ELINA
[2023-02-10] VITALS (53 sets, daily range): BP systolic 107–180; BP diastolic 55–121
[2023-02-10 02:23] LABS: Source, Urine Foley catheter
--- NOTE | 2023-02-10 02:25 | NUR ---
AT 0200 PATIENT CONTINUES TO HAVE NO URINE OUT WITH PUREWICK IN PLACE. BLADDER SCAN AT 0054 SHOWING 466 CC OF URINE. DUE TO PREVIOUS DISCUSSION WITH DOCTOR GAL REGARDING MONITORING I&O CLOSELY DUE TO BEING CRITICALLY ILL AND CONTINUING TO EVAL WHY HAVING AMS, ORTIZ PLACED DRAINING 600 CC OF YELLOW URINE.
[2023-02-10 02:27] LABS: Bilirubin, Urine Neg (Neg); Blood, Urine 2+ (Neg); Glucose Qualitative, Urine Neg (Neg); Ketones, Urine Neg (Neg); Leukocyte Esterase, Urine Neg (Neg); Nitrite, Urine Neg (Neg); Protein, Urine 4+ (Neg); Specific Gravity, Urine 1.015 (1.003-1.022); Urobilinogen, Urine NORM (Normal)
[2023-02-10 02:40] LABS: Appearance, Urine Clear (Clear); Bacteria Rare /hpf; Color, Urine Yellow (P-Yellow); Squamous Epithelial Cells Few /hpf (Few); White Blood Cells, Urine 0-2 /hpf (0-5)
[2023-02-10] MEDS ORDERED: LISI20 PO (02:53)
[2023-02-10] MEDS ORDERED: MIRALAX17 GM PO (02:54)
[2023-02-10] MEDS ORDERED: Prilosec10 M1 PO (02:57)
[2023-02-10] MEDS ORDERED: SENNA LAXATIVE8.6 MG PO (02:58)
[2023-02-10 03:48] LABS: BASOPHILS ABSOLUTE AUTO 0.02 K/mm3 (0.00-0.23); BASOPHILS PERCENT AUTO 0 % (0-2); EOSINOPHILS PERCENT AUTO 0 % (0-6); Hematocrit 34.4 % (33.0-51.0); Hemoglobin 11.1 g/dL (11.5-16.0); IMMATURE GRAN ABSOLUTE AUTO 0.05 K/mm3 (0.00-0.10); IMMATURE GRAN PERCENT AUTO 1 % (0-1); LYMPHOCYTES ABSOLUTE AUTO 0.36 K/mm3 (0.84-5.20); LYMPHOCYTES PERCENT AUTO 4 % (21-46); MONOCYTES ABSOLUTE AUTO 0.16 K/mm3 (0.16-1.47); MONOCYTES PERCENT AUTO 2 % (4-13); Mean Corpuscular HGB 29.2 pg (26.0-34.0); Mean Corpuscular HGB Conc 32.3 g/dL (31.5-36.5); Mean Corpuscular Volume 91 fL (80-100); Mean Platelet Volume 10.4 fL (9.1-12.4); NEUTROPHILS ABSOLUTE AUTO 8.64 K/mm3 (1.96-9.15); NEUTROPHILS PERCENT AUTO 94 % (41-73); Platelet Count 239 K/mm3 (150-400); RDW Coefficient Variation 16.7 % (11.7-14.2); RDW Standard Deviation 55.3 fL (35.1-46.3); White Blood Cell Count 9.23 K/mm3 (4.00-11.30)
[2023-02-10 04:05] LABS: Albumin, Blood 2.4 g/dL (3.4-5.0); Anion Gap 5 mmol/L (6-16); Blood Urea Nitrogen 24 mg/dL (8-24); Bun/Creatinine Ratio 23.8 (12.0-20.0); CO2, Blood 27 mmol/L (21-32); Calcium, Blood 8.2 mg/dL (8.5-10.1); Chloride, Blood 106 mmol/L (98-108); Creatinine, Blood 1.01 mg/dL (0.40-1.00); Glomerular Filtration Rate 54 (60-); Glucose, Blood 144 mg/dL (70-99); Magnesium, Blood 2.3 mg/dL (1.6-2.4); Phosphorus, Blood 4.5 mg/dL (2.5-4.9); Sodium, Blood 138 mmol/L (136-145)
--- NOTE | 2023-02-10 06:14 | NUR ---
SUMMARY PATIENT KEEPING EYES CLOSED MOST OF THE NIGHT, NO LONGER GAZING TO THE RIGHT, BUT CONTINUES TO NOT LOOK AT OR FOCUS ON THINGS AROUND HER. CONTINUES TO PUSH STAFF AWAY DURING ORAL CARE AND WHILE ATTEMPTING IV START. USING LEFT ARM MORE THAN RIGHT. ONLY SLIGHT MOVEMENT SEEN IN LEGS. LEFT PUPIL REMAINS MISSHAPEN AND NOT RESPONSIVE TO LIGHT. RIGHT PUPIL BRISK REACTION TO LIGHT. NO FURTHER RHYTHMIC MOVEMENTS SEEN SINCE 1999.
[2023-02-10 13:11] LABS: Vancomycin, Random 11.7 ug/mL
--- NOTE | 2023-02-10 18:45 | NUR ---
SUMMARY OF ENTIRE SHIFT: PT BEGAN AT 0700 BY NOT RESPONDING TO ANY VERBAL STIMULI. SHE IS NOT OPENING HER EYES, NOT ANSWERING VERBALLY. SHE WAS COUGHING OCC AND WAS SATURATING DOWN TO THE 80'S BY HAVING APNEA EPISODES. WHEN STIMULATED SHE IMMEDIATELY RETURNED TO BASELINE. THE NOON HOUR ASSESSMENTS SHE WAS ABLE TO OPEN HER EYES TO STIMULI BUT WAS UNABLE TO MAKE ANY WORDS OR FOLLOW ANY COMMANDS. SHE WAS NOT MOVING THE RIGHT HAND. AT 1400 SHE WAS ABLE TO MOVE HER ARMS BUT NOT TO COMMAND WAS ABLE TO USE HER SUCTION TO CLEAN OUT HER MOUTH. SHE WOULD NOT MAKE EYE CONTACT OR WORDS. AT 1600 SHE WAS MORE ALERT, SITTING WITH EYES OPEN, SHARED WITH HER THAT HER DAUGHTER LOVED HER AND WANTED HER TO REST. SHE VOCALIZED "I AM TIRED". ASKED HER BIRTHDAY, WHERE SHE IS, IF SHE IS HAVING PAIN. NO ANSWERS, NO FOCUS. AT 1800 SHE WAS ALERT AND RESPONDED TO HER NAME AFTER HER LEFT HEARING AID WAS PUT IN. SHE WAS STILL INTERMITTENT IN RESPONSE, DID NOT FOLLOW COMMANDS BUT IS TRYING TO VOCALIZE. STILL NOT ORIENTED. COMMUNICATED WITH AND WITH THE DAUGHTER GRAHAM.
[2023-02-11] VITALS (16 sets, daily range): BP systolic 124–187; BP diastolic 54–113
[2023-02-11 04:33] LABS: Hematocrit 33.7 % (33.0-51.0); Hemoglobin 11.3 g/dL (11.5-16.0); Mean Corpuscular HGB 29.7 pg (26.0-34.0); Mean Corpuscular HGB Conc 33.5 g/dL (31.5-36.5); Mean Corpuscular Volume 89 fL (80-100); Mean Platelet Volume 10.7 fL (9.1-12.4); Platelet Count 259 K/mm3 (150-400); RDW Coefficient Variation 16.7 % (11.7-14.2); RDW Standard Deviation 53.8 fL (35.1-46.3); Red Blood Cell Count 3.81 M/mm3 (3.80-5.20); White Blood Cell Count 18.13 K/mm3 (4.00-11.30)
--- NOTE | 2023-02-11 05:34 | NUR ---
SHIFT SUMMARY PT ALERT; AT TIMES PT NOT FULLY TRACKING BUT IS MORE OFTEN MAKING EYE CONTACT AND TRACKING WHEN STAFF IN THE ROOM. PT RESPONDING TO QUESTIONS BUT IS NOT ALWAYS ABLE TO VERBALIZE NEEDS OR RESPONSE NOT COHERENT. PT SEEMS TO DO MUCH BETTER WITH Y/N QUESTIONS. PT HAS BEEN ABLE TO VERBALIZE THAT SHE WAS COLD, THAT SHE WANTED A BLANKET. PT RESTLESS AND FIDGETY MOST OF THE SHIFT. PT FREQUENTLY TAKING OFF TELE STICKERS, GOWN AND BLOOD PRESSURE CUFF. PT REMINDED THAT SHE IS AT THE HOSPITAL, PT ONLY CALMS WHILE IN THE ROOM BUT QUICKLY BACK TO PULLING AT CORDS. PT ORIENTED TO SELF AT BEGINNING OF THE SHIFT; ABLE TO STATE HER BIRTHDAY AND NOD HEAD YES TO IF HER NAME WAS GLEN. UPON REASSESSMENT PT IS NOT CONSISTENTLY ANSWERING ORIENTATION QUESTIONS. PT IS ABLE TO FOLLOW MOST COMMANDS. PT IS STARTING TO MAKE MORE PURPOSEFUL MOVEMENTS. PT ABLE TO AST WITH REPOSITIONING AT TIMES. VSS; SEE VITALS CHARTED. PT HAS DENIED ANY PAIN, DENIES ARREAGA. PT ON RA THROUGHOUT NOC SHIFT; SPO2 92 - 96%. NO SOB OR RESPIRATORY DISTRESS NOTED. PT CONTINUES TO HAVE PRODUCTIVE COUGH ALTHOUGH SPUTUM AMOUNT IS SCANT - SMALL. WHITE AND YELLOW IN COLOR. PT COUGH IS WEAK, BUT PT IS CLEARING AIRWAY. PT ALSO ABLE TO SUCTION INDEPENDENTLY AT TIMES. Q6 CBG STABLE. ABX AND KEPPRA PER EMAR. ORAL CARE AND PARTIAL BED BATH COMPLETED. PT DID NOT HAVE ANY ACUTE EVENTS OVERNIGHT. ORTIZ CATHETER IN PLACE AND DRAINING CLEAR, YELLOW URINE TO GRAVITY; 450 MLS OUT THIS SHIFT. PT HAD A SMALL SMEAR FOR BM BUT OTHERWISE NONE; ATTENDS IN PLACE AND DRY. WILL UPDATE ONCOMING RN
[2023-02-11 05:41] LABS: Anion Gap 9 mmol/L (6-16); Blood Urea Nitrogen 32 mg/dL (8-24); Bun/Creatinine Ratio 33.4 (12.0-20.0); CO2, Blood 24 mmol/L (21-32); Calcium, Blood 8.4 mg/dL (8.5-10.1); Chloride, Blood 107 mmol/L (98-108); Creatinine, Blood 0.96 mg/dL (0.40-1.00); Glomerular Filtration Rate 57 (60-); Glucose, Blood 125 mg/dL (70-99); Potassium, Blood 3.5 mmol/L (3.5-5.5); Sodium, Blood 140 mmol/L (136-145); Vancomycin, Random 17.1 ug/mL
--- NOTE | 2023-02-11 08:00 | NUR ---
INITIAL ASSESSMENT PATIENT SLEEPING SOUNDLY UPON ENTERING ROOM. PATIENT WOKE TO NOXIOUS STIMULI. PATIENT ORIENTED TO SELF ONLY. PATIENT HAS VERY SOFT VOICE THAT IS GARBLED AND UNABLE TO DISCERN WHAT SHE IS SAYING. PATIENT IS NOT FOLLOWING ANY COMMANDS AT THIS TIME SO UNABLE TO DETERMINE IF ANY DEFICITS FROM CVA. PATIENT IS RESTLESS AND IS MOVING ALL EXTREMITIES. RIGHT PUPIL REACTIVE TO LIGHT. LEFT PUPIL NON-REACTIVE. PATIENT TEARFUL AND IRRITATED AT TIMES. L HEARING AID NOTED. PATIENT AFEBRILE. NO COMPLAINTS OF PAIN AT THIS TIME. PATIENT SATTING 90% AND GREATER ON RA. PATIENT WEARS 2 L NC AT BASELINE. LUNGS COARSE THROUGHOUT. PATIENT HAS WEAK, MOIST COUGH. PATIENT IN SR WITH PACS, HR 90S TO LOW 100S. SBP 130S TO 140S. SCDS IN PLACE. PATIENT NPO AT THIS TIME. BRUISE NOTED TO R SIDE OF TONGUE; LOOKS IF PATIENT BIT IT AT SOME POINT. DATE OF LAST BM YESTERDAY. ATTENDS IN PLACE. ORTIZ DRAINING YELLOW COLORED URINE. SKIN COOL AND FRAGILE. MEPILEX TO REDDENED COCCYX/ SACRUM. LARGE BRUISE NOTED TO R FA. BED LOW, CALL LIGHT IN REACH. CARE CONTINUES.
--- NOTE | 2023-02-11 16:00 | NUR ---
PATIENT AFEBRILE. HR IN THE 90S. SBP IN THE 160S. NO COMPLAINTS OF PAIN. NO CHANGES IN NEURO STATUS. BED LOW, CALL LIGHT IN REACH. CARE CONTINUES.
--- NOTE | 2023-02-11 18:49 | NUR ---
SHIFT SUMMARY PATIENT, AT MOST, ORIENTED TO HERSELF THIS SHIFT. PATIENT DID REMEMBER DAUGHTER AT TIMES. PATIENT MORE TALKATIVE SHIFT HAS GONE ON AND HAS BECOME A LITTLE BIT EASIER TO UNDERSTAND BUT VOICE STILL VERY SOFT AND QUIET. PATIENT ASKING LOTS OF QUESTIONS. PATIENT DOES NOT REMEMBER BEING A [place] AND WHEN IS UPDATED ON STATUS AND THAT SHE HAS HAD A CVA PATIENT BECOMES VERY TEARFUL. PATIENT PICKING AT LINES AND CORDS THIS AM BUT HAS BEEN BETTER THIS AFTERNOON. PATIENT HAS BEEN MOVING ALL EXTREMITIES WELL. PATIENT AT TIMES SEEM TO REACH FOR THINGS THAT ARE NOT THERE. PATIENT IRRITABLE WITH STAFF WHEN STAFF DOES NOT UNDERSTAND WHAT SHE IS SAYING. PATIENT HAS REMAINED AFEBRILE. PATIENT HAS DENIED PAIN THROUGHOUT SHIFT. PATIENT HAS REMAINED SATTING 90% AND GREATER ON RA. LUNGS COARSE. PATIENT CONTINUES WITH WEAK COUGH. PATIENT HAS BEEN SR WITH PACS. HR 70S TO LOW 100S. SBP 120S TO 180S. PATIENT FAILED SWALLOW EVAL TODAY SO REMAINS NPO. LR STARTED AT 100 MLS/ HOUR. 400 MLS OF URINE OUT FROM ORTIZ THIS SHIFT. ORTIZ DC'D; PATIENT HAS NOT VOIDED SINCE. BLADDER SCAN SHOWS 135 MLS OR URINE IN BLADDER. NO CHANGES TO SKIN NOTED. FAMILY CALLED TO CHECK ON PATIENT TODAY. BED LOW, CALL LIGHT IN REACH. REPORT WILL BE GIVEN TO ASSUMING ANIMAL HUSBANDRY TEACHER NURSE SHORTLY.
--- NOTE | 2023-02-11 20:38 | NUR ---
ASSUMPTION OF CARE REPORT RECEIVED FROM DAYSHIFT RN, PT RESTING IN BED, ALERT AND ORIENTED TO SELF. PT ABLE TO STATE HER NAME AND , ANSWERS MOST QUESTIONS APPROPRIATELY, PT SEEMS SLIGHTLY CONFUSED. HR 95, MAP >65. PT ON RA, OXYGEN SATURATION >95%, THIS RN SUCTIONED MODERATE AMOUNT OF THICK SECRETIONS FROM PTS MOUTH. PT DENIES SOB OR PAIN. POWERGLIDE IN PLACE TO CORTEZ INFUSING LR @ 100MLS/HR. SCD'S IN PLACE TO BLE. ATTENDS IN PLACE. BED IN LOWEST POSITION, CALL LIGHT WITHIN REACH. CARE CONTINUES.
--- NOTE | 2023-02-11 21:43 | NUR ---
NURSE NOTE ASSUMED CARE OF PATIENT. IV INFUSED AT ORDERED RATE. SEIZURE PADS IN PLACE. BED IN LOCKED AND LOWEST POSITION. BED ALARM ON. CALL LIGHT IN PLACE.
[2023-02-12 03:11] VITALS: BP 140/108
--- NOTE | 2023-02-12 05:18 | NUR ---
SHIFT SUMMARY PATIENT HAS HAD NO ACUTE EVENTS THIS SHIFT. VITAL SIGNS REVIEWED. PATIENT WAS A TRANSFER FROM ICU. PATIENT HAS IV FLUIDS INFUSING ORDERED. PATIENT IS NPO AND IS AWAITING A SPEECH EVAL TODAY. PATIENT HAS HAD A BOWEL MOVEMENT THIS SHIFT. PATIENT REMAINS CONTINENT. PATIENT IS COVID POSITIVE AND IS SATTING ABOVE 92 ON ROOM AIR. PATIENT HAS NOT COMPLAINED OF PAIN, NAUSEA, SOB OR VOMITTING THIS SHIFT. PATIENT HAS BEEN RESTING MOST OF THIS SHIFT. PATIENT HAS NOT BEEN IMPULSIVE THIS SHIFT. BED IN LOCKED AND LOWEST POSITION. CALL LIGHT IN PLACE. WILL MONITOR UNTIL SHIFT CHANGE.
[2023-02-12 07:37] VITALS: BP 186/89
--- NOTE | 2023-02-12 15:45 | NUR ---
Case Conference Note Spoke with Dr Viramontes and discussed case. Dr Viramontes spoke with granddaughter who is Pt's HProxy. Goals of care discussed and family has elected comfort care. Granddaughter may benefit from discussion regarding hospice tomorrow after family has had time to process information. Dr Viramontes will place comfort care orders. Palliative Care will remain available
--- NOTE | 2023-02-12 20:04 | NUR ---
SUMMARY- PT A/O X2. BEDREST, ABLE TO GET UP SBA TO BSC. MADE COMFORT CARE THIS PM. MEDICATED FOR CHEST PAIN STARTED AROUND 1600, ROXANOL EFFECTIVE. PT'S LUNG REMAIN MOIST, RHONCHI THROUGHOUT. UNABLE TO CLEAR COPIOUS AMOUNTS OF PHLEGM. USING YANKAUR. STARTED SCOPOLAMINE PATCH. VISITORS CAME AROUND 1930. REPORTED TO NOC RN
--- NOTE | 2023-02-13 06:41 | NUR ---
SHIFT MAGALIY, PT RESTING IN BED MOST OF THE NIGHT , PT NOT SEEMING TO BE IN PAIN AND WHEN ASKED DENING PAIN. CALL LIGHT I REACH BED ALARM ON.
--- NOTE | 2023-02-13 13:55 | NUR ---
Pt son states he located pt hearing aid, denture, cell phone and purse at [facility]. Son states pt went to [facility] with $3000 in her purse and only $431 is in the purse now. He stated he talked to administration there. I instructed him to take her purse and valuables home when he leaves today. Son verbalized understanding. chainstitch felled seam operatorCHRIS rubio.
--- NOTE | 2023-02-13 13:59 | NUR ---
Comfort Care Visit Prior to visiting with Pt this PC RN called Pt's granddaughter Yousif. Engaged in therapeutic discussion regarding hospice. Yousif reports being familiar with hospice as she is a caregiver. Discussed hospice agencies to choose from. Yousif will consider options. Yousif is reporting Pt's lives with son and son is scheduled for neck surgery tomorrow. She reports he will not be able to provide care for Pt for sometime until he recovers and requested assistance with placement. Continued supportive conversation. Yousif agreeable to complete POLST when she is visit tomorrow. Pt resting in bed with lots of family at bedside. Pt denies pain at this time. Pt appears comfortable with no S/S of distress. Offered supportive visit and answered questions. Family is requesting Pt receive thin liquids. Instructed on risks of aspiration and potential cause of untimely demise. Family V/U. Provided cup of ice water for Pt. Family expresses appreciation. Palliative Care will remain available
--- NOTE | 2023-02-13 17:52 | NUR ---
SHIFT SUMMARY Pt remains alert to self and situation this shift. More awake and alert visiting with family this afternoon. Lung sounds coarse this am, diminished this pm. Voice soft. Was able to get up with 1 person ast to bsc. unsteady and weakness noted. Tolerating pureed diet with honey thick liquids. Decreased appetite to bites/sips. Pain and safety maintained. Call light in reach, bed alarm on.
[2023-02-13 21:04] VITALS: BP 137/99
--- NOTE | 2023-02-14 03:45 | NUR ---
SHIFT SUMMERY, PT RETSING IN BED AT THIS TIME. PT APPEARS TO BE COMFORTABLE. PT UP EARLY IN SHIFT TO BSC TO VOID. PT ABLE TO GET UP WITH MIN ASSIST TO BSC. PT THEN ABLE TO WIPE AND WITH MIN ASSIST TO GET BACK TO BED. CALL LIGHT IN REACH.
--- NOTE | 2023-02-14 10:15 | NUR ---
Comfort Care Visit Pt resting in bed upon arrival and is more alert today. Family at bedside. Pt denies pain, dyspnea, and anxiety at this time. Offered therapeutic listening and answered questions. Pt in agreement with current plan. Obtained copies of Pt's advanced directive and obtained signature from Dr Viramontes for Pt's POLST. Obtained copies of POLST. Delivered copies of AD and POLST to medical records via hospital tube system. Pt and family report no other concerns at this time. Palliative Care will remain available
--- NOTE | 2023-02-14 17:36 | NUR ---
SHIFT SUMMARY Pt remains awake and alert this shift. Family at bedside all day. Encouraged rest breaks for pt. Resp even nonlabored on RA. Bites and sips of food/drink. Cough noted after thin liquids. Educated pt and family of risks of aspiration. Pt states doesnt like thickened liquids.
--- NOTE | 2023-02-15 03:54 | NUR ---
SHIFT SUMMERY, PT RESTING IN BED, PT VERY TIRED, PT HAD NOT SLEPT WELL THE NIGHT [place] AND HAD FAMILY VISITING ALL DAY. PT MEDICATED FOR PAIN. PT SEEMING TO BE RESTING WELL, CALL LIGHT IN REACH.
--- NOTE | 2023-02-15 18:06 | NUR ---
DAYSHIFT SUMMARY Patient alert & oriented. Resting comfortably in bed t/o day, arouces to voice & touch. Poor PO intake. IV Keppra administred. Family at bedside all day. Denies pain. New scoplamine patch applied behind left ear. Will continue plan of care, awaiting discharge planning.
--- NOTE | 2023-02-15 19:25 | NUR ---
Will reevaluate prongosis and needs tomorrow. Fro best paln of future care.
--- NOTE | 2023-02-16 04:34 | NUR ---
SHIFT SUMMARY PT HAS BEEN SLEEPING MOST OF THE SHIFT. PT DID WAKE TO USE COMMODE THIS AM. PT COOPERATIVE AND HAS NO COMPLAINTS OR NEEDS AT THIS TIME. PT RECEIVED HER 0400 KEPPRA AND HAS CALL LIGHT WITHIN HER REACH.
--- NOTE | 2023-02-16 20:33 | NUR ---
SHIFT SUMMARY NO ACUTE CHANGES. ORDER TO D/C IV ACCESS. IV KEPPRA CHANGES TO ORAL SUSPENSION KEPRA. PT FAMILY AT BEDSIDE T/O THE DAY. PLAN FOR DAUGHTER AND GRANDDAUGHTER IN LAW TO CARE FOR PT WHEN SHE GOES HOME ON HOSPICE. GRANDDAUGHTER IS FROM [place] AND WILL BE RETURNING ON 02/18/23 WITH PLANS TO CARE FOR PT THROUGH END OF LIFE. FAMILY HOPES TO COORDINATE DISCHARGE WITH HOSPICE AND FAMILY CAREIGIVERS. DAUGHER NAME IS ELINA [facility] [phone]. ELINA ALSO STATED PT DESIRE TO DONATE BODY TO B[employer]IFT WHEN SHE PASSES. ELINA IS MAKING THOSE ARRANGEMENTS. PT ALERT T/O THE DAY. FLAT, WTIHDRAWN AFFECT. EXPRESSING WISHES TO AND NOT BE A BURDEN TO HER FAMILY. PT DENYING PAIN T/O THE DAY. PT DID REPORT TENDERNESS TO COCCYX. INSTRUCTED IMPORTANCE OF OFFLOADING PRESSURE. NON BLANCHING REDNESS. APPLIED MEPILEX AND REPOSITIONED Q2 HRS.
--- NOTE | 2023-02-17 05:57 | NUR ---
NOC SHIFT SUMMARY: PATIENT ALERT AND ORIENTED X4. CALLS APPROPRIATELY. 1 ASSIST TO [facility]. [facility] CONTACTED. ?HOME WITH CAREGIVER SUPPORT. NO C/O PAIN. NO IV. KEPPRA GIVEN ON SPOON IN LIQUID FORM. CALL LIGHT WITHIN REACH. BED IN LOW POSITON.
--- NOTE | 2023-02-17 17:33 | NUR ---
SHIFT SUMMARY PT A&OX3. NO ACUTE CHANGES. PT HAD FAMILY AT BEDSIDE T/O DAY. NO C/O PAIN. PT'S BOTTOM HAD SOME REDNESS ON COCCYX. BARRIER CREAM APPLIED. VERY LITTLE FOOD INTAKE. SUCTION AT BEDSIDE. BED IN LOWEST POSITION AND CALL LIGHT IN REACH.
--- NOTE | 2023-02-18 05:24 | NUR ---
NOC SHIFT SUMMARY: PIZZAMAKER. [facility] WITH [facility]. [place] SCHEDULED FOR 10 AM. NO C/O PAIN. SHE IS WEAKER AND IS A 1-2 PERSON ASSIST TO THE BSC. BOWEL MOVEMENT OVERNIGHT. CALL LIGHT WITHIN REACH. BED IN LOW POSITION.
[2023-02-18] MEDS ORDERED: TRANSDERM-SCOP1 EA13 TOP (08:09)
--- NOTE | 2023-02-18 10:41 | NUR ---
PATIENT ASSESSED FOR COMFORT, NEEDS MET, PATIENT LEFT UNIT WITH [facility] VIA [facility] AT 1000 FOR TRANSPORT TO HOME ON HOSPICE, SON OLIVER NOTIFIED WHO STATES HE IS IN HER HOME AT THIS TIME AND HOSPICE WILL ARRIVE BY 1100 TODAY FOR ADMISSION TO [facility].
== END 2023-02-18 09:51 | disposition hospice, home (50) | DRG 177 ==
LOC: ER 13:15 → MEDS 16:24 → ICUE 16:24 → MEDS 02-11 21:18
PROVIDERS: Emergency Medicine; Internal Medicine; Student in an Organized Health Care Education/Training Program; ADMIT Student in an Organized Health Care Education/Training Program
PROC: XW033E5 Introduction of Remdesivir Anti-infective into Peripheral Vein, Percutaneous Approach, New Technology Group 5 (ICD-10-PCS; principal; 2023-02-09)
PROC: 3E0333Z Introduction of Anti-inflammatory into Peripheral Vein, Percutaneous Approach (ICD-10-PCS; 2023-02-09)
PROC: 8E0ZXY6 Isolation (ICD-10-PCS; 2023-02-09)
DX: U07.1 COVID-19 (principal); G92.8 Other toxic encephalopathy; I63.50 Cerebral infarction due to unspecified occlusion or stenosis of unspecified cerebral artery; J96.21 Acute and chronic respiratory failure with hypoxia; N17.9 Acute kidney failure, unspecified; D68.69 Other thrombophilia; R13.10 Dysphagia, unspecified; Z51.5 Encounter for palliative care; Z66 Do not resuscitate; G40.901 Epilepsy, unspecified, not intractable, with status epilepticus; I12.9 Hypertensive chronic kidney disease with stage 1 through stage 4 chronic kidney disease, or unspecified chronic kidney disease; N18.30 Chronic kidney disease, stage 3 unspecified; K21.9 Gastro-esophageal reflux disease without esophagitis; F32.A Depression, unspecified; R91.1 Solitary pulmonary nodule; J44.9 Chronic obstructive pulmonary disease, unspecified; Z99.81 Dependence on supplemental oxygen; Z85.89 Personal history of malignant neoplasm of other organs and systems; Z79.52 Long term (current) use of systemic steroids; Z87.891 Personal history of nicotine dependence; Z11.52 Encounter for screening for COVID-19; Z87.01 Personal history of pneumonia (recurrent)
CPT/HCPCS: 0241U; 36415; 36600; 51702; 70450; 71045; 80048; 80053; 80069; 80202; 81001; 82803; 82947; 83735; 83880; 84145; 84484; 85025; 85027; 87040; 92526; 92610; 93005; 93010; 94660; 96365; 99291-25; A9270; C1751; J0133; J0248; J0290; J0295; J0696; J1100; J1650; J1953; J2060; J3370; J3475; J7050; J7120